=== PATIENT | female | born 1985 | race Hispanic/Latino ===

== ENCOUNTER 2018-09-06 18:58 | Inpatient (IN) | payer OTHER ==
[~2018-09-06] VITALS: Ht 154.9 cm; Wt 70.4 kg
[2018-09-06] MEDS ORDERED: PRENTAB9 PO (19:27)
[2018-09-06 19:37] LABS: APPEARANCE, URINE CLOUDY (CLEAR); BACTERIA, URINE AUTO NEGATIVE (NEGATIVE); BILIRUBIN, URINE AUTO NEGATIVE (NEGATIVE); BLOOD, URINE BLOOD 3+ (NEGATIVE); COLOR, URINE YELLOW (YELLOW); GLUCOSE, URINE (UA) AUTO NEGATIVE (NEGATIVE); KETONE, URINE AUTO 2+ mg/dL (NEGATIVE); LEUKOCYTE ESTERASE, URINE AUTO 2+ (NEGATIVE); MUCUS, URINE SMALL (NEGATIVE); NITRITE, URINE AUTO NEGATIVE (NEGATIVE); PROTEIN, URINE AUTO NEGATIVE (NEGATIVE); RBC, URINE AUTO 2 /HPF (0-3); SPECIFIC GRAVITY URINE AUTO 1.018 (1.002-1.035); SQUAMOUS EPITHELIAL CELL UR AU 7 /HPF (0-6); UROBILINOGEN, URINE AUTO 0.2 mg/dL (0.0-2.0); WBC, URINE AUTO 61 /HPF (0-3)
[2018-09-06 20:18] VITALS: BP 113/68
[2018-09-06] MEDS ORDERED: LACTATED RINGER'S 1000 ML IV ONE (20:45)
[2018-09-06] MEDS ORDERED: AMPICILLIN SOD/SULBACTAM SOD 3 GM in D5W MINI-BAG PLUS 100 ML IV ONE (21:00)
[2018-09-06] MEDS ORDERED: OXYTOCIN 30 UNITS IN 0.9% NaCl 500ML IV BAG (J2590) As Ordered ONE (22:19)
[2018-09-06] MEDS ORDERED: OXYTOCIN DRIP 30 UNITS in APPROPRIATE DILUENT 1 EA IV SCH (23:09)
[2018-09-06] MEDS ORDERED: RHOGAM 300 MCG (1500 IU) INJ (J2790) IM SCH (23:15)
[2018-09-06] MEDS ORDERED: MOM 30ML SUSPENSION UDC PO PRN (23:15)
[2018-09-06] MEDS ORDERED: IBUPROFEN 800 MG TAB PO PRN (23:15)
[2018-09-06] MEDS ORDERED: ANUSOL HC CREAM 30GM TOP PRN (23:15)
[2018-09-06] MEDS ORDERED: OXYTOCIN INJ 10 UNITS/ML VIAL (J2590) IV ONE (23:15)
[2018-09-06] MEDS ORDERED: METHYLERGONOVINE MALEATE 0.2 MG TAB PO PRN (23:15)
[2018-09-06] MEDS ORDERED: MEASLES,MUMPS,RUBELLA VACCINE INJ (MMR-II) (90707) SC SCH (23:15)
[2018-09-06] MEDS ORDERED: ACETAMINOPHEN TAB 650MG DOSE (2X325MG) PO PRN (23:15)
[2018-09-06] MEDS ORDERED: DIBUCAINE 1% OINTMENT 30GM TOP PRN (23:15)
[2018-09-06] MEDS ORDERED: ACETAMINOPHEN 500 MG TAB PO PRN (23:15)
[2018-09-06] MEDS ORDERED: DOCUSATE SODIUM 100 MG CAP PO PRN (23:15)
[2018-09-07 00:06] LABS: CORD GAS ABE V -8.2; CORD GAS HCO3 V 18.1 MEQ/L; CORD GAS O2 SAT V 69.6 %; CORD GAS PCO2 V 40.1 mmHg; CORD GAS PH V 7.272 UNITS; CORD GAS PO2 V 33.7 mmHg; CORD GAS SBC V 17.3 MEQ/L; CORD GAS TCO2 V 19.3 MEQ/L
[2018-09-07 00:17] LABS: CORD GAS ABE A -7.9; CORD GAS HCO3 A 21.2 MEQ/L; CORD GAS O2 SAT A 39.9 %; CORD GAS PCO2 A 57.9 mmHg; CORD GAS PH A 7.182 UNITS; CORD GAS PO2 A 23.2 mmHg; CORD GAS SBC A 16.9 MEQ/L
[2018-09-07 00:22] LABS: HEMATOCRIT 33.6 % (36.0-47.0); MEAN CORPUSCULAR HEMOGLOBIN 26.4 pg (27.0-33.0); MEAN CORPUSCULAR HGB CONC 32.7 g/dl (32.0-36.5); MEAN CORPUSCULAR VOLUME 80.8 fl (80.0-96.0); PLATELET COUNT, AUTOMATED 242 10^3/uL (150-450); RED BLOOD COUNT 4.16 10^6/uL (4.00-5.40); WHITE BLOOD COUNT 14.3 10^3/uL (4.0-10.0)
[2018-09-07 01:31] VITALS: BP 122/74
[2018-09-07] MEDS: IBUPROFEN 600 MG TAB PO PRN (01:39)
[2018-09-07 02:00] VITALS: BP 111/63
[2018-09-07 06:00] VITALS: BP 109/64
[2018-09-07 07:14] LABS: HEMATOCRIT 29.5 % (36.0-47.0); HEMOGLOBIN 9.6 g/dl (12.0-15.5); MEAN CORPUSCULAR HEMOGLOBIN 25.4 pg (27.0-33.0); MEAN CORPUSCULAR HGB CONC 32.5 g/dl (32.0-36.5); PLATELET COUNT, AUTOMATED 247 10^3/uL (150-450); RED BLOOD COUNT 3.78 10^6/uL (4.00-5.40)
--- NOTE | 2018-09-07 08:19 | HPE ---
DATE OF ADMISSION: 09/06/2018 33-year-old 3, para 2, last menstrual period (LMP) 12/19/2017, estimated date of confinement (EDC) 09/25/2018, 37 and 2 weeks of gestation, with history of contractions, dehydration, possible urinary tract infection (UTI). Risk factors; dehydration, possible UTI, transfer 27 weeks gestation. PAST HISTORY: In 2010, at 38 weeks, spontaneous vaginal delivery. 2014, at 38 weeks spontaneous vaginal delivery. LABS: Are O positive, HIV negative, hepatitis negative, RPR negative, rubella nonimmune. Varicella immune. Pap normal. Urine negative. Gonorrhea and chlamydia negative. 1-hour glucose was 117. On examination, appear distressed. Symphysis fundus height is 38, vertex presenting -2 station, posterior, 1-2 cm, 50% effaced. No vaginal loss or bleeding. Urine is 1.018, pH is 5, 2+ ketones, 2+ esterase, 3+ blood. Blood pressure 113/68, respirations 18, pulse 121, temperature 97.6. Rest of examination unremarkable. Normocephalic, atraumatic. Neck: Full range of motion. Pupils equal and reactive to light. Distal pulses symmetric. No evidence of deep venous thrombosis (DVT), pulmonary embolus (PE), or superficial phlebitis. Chest is clear bilaterally to bases, no wheezes or rhonchi. No costovertebral angle (CVA) tenderness. Abdomen: Soft. Symphysis fundus height is appropriate. Category strip. Four quadrant bowel sounds are noted. No rashes, lesions, or pruritus. No arthralgia or myalgia. No complaint joint pain. No complaint of cough, wheeze, shortness breath, or dyspnea on exertion. No nausea, vomiting, diarrhea, or constipation. No diabetic issues. No gynecological (MDS COORDINATOR) or medical issues. Presently, has good support, to a soldier. Both and two children are here with her. Possibility of being in early labor will be entertained. Re-evaluation in 2-hours' time. Intravenous (IV) antibiotics in order to cover the possible UTI, and oral antibiotics to take home if the patient is discharged. Will re-evaluate her in 2 hours.
--- NOTE | 2018-09-07 08:48 | IPN ---
DATE: 09/07/2018 day #1. This lady is a 33-year-old 3, now para 3, came in spontaneous precipitous labor, delivered a female, 6 pounds 8 ounces, 2940 grams, scores of 9 and 9 at one and five minutes respectively. Arterial pH was 7.18, base excess -7.9, venous pH 7.27, base excess -8.2. Admitting hemoglobin was 11.0, hematocrit 33.6 and platelets are 242. On day #1, she is breast-feeding, doing well, voiding, passing gas. The rest of the examination is unremarkable. Normocephalic, atraumatic. Neck: Full range of motion. Pupils equal and reactive to light. Distal pulses symmetric. No evidence of deep vein thrombosis (DVT), pulmonary embolism (PE), or superficial phlebitis. Chest is clear bilaterally bases. No wheezes or rhonchi. No costovertebral angle (CVA) tenderness. Abdomen: Soft, four quadrant bowel sounds are noted. Perineum is intact. Blood pressure 109/64, respirations 17, pulse 80, temperature is 98.1. The patient will be given medications at discharge. She is uncertain about control. Will discuss that at 6-week checkup. In summary, we have a 37 and 1 week gestation, delivered a live female . No issues.
[2018-09-07] MEDS: PRENATAL VITAMINS CHEWABLE TABLET PO SCH (09:00)
[2018-09-07 18:00] VITALS: BP 114/71
--- NOTE | 2018-09-07 19:07 | DN ---
DATE: 09/06/2018 This lady is a 3, para 2, was admitted because of contractions, dehydration and possible urinary tract infection (UTI). On initial examination, she was found to be 1 cm posterior, -250 percent effaced. She was significantly dehydrated, with a urine of 10/18 pH of 05, 350 blood, 250 of leukocyte esterase, 2+ ketones and nitrates. She then had a spontaneous rupture of membranes precipitously, became fully dilated and pushed out precipitously in the persistent occiput posterior (POP) position a live female infant, 2940 grams, 6 pounds 8 ounces, scores of 9 and 9 at one and five minutes respectively. Cord around the neck once. Placenta was spontaneously delivered. Three-vessel cord, membranes and tissues intact. Arterial and venous pH were performed. Perineum appeared to be intact. Sphincter was intact. The anterior, posterior and lateral rea were intact. Uterus contracted well down on Pitocin. The patient and baby tolerating the procedure well. We did swab the placental site because of increased heat on the initial pelvic examination.. Patient was afebrile.
[2018-09-08] MEDS: IBUPROFEN 600 MG TAB PO PRN (01:46)
[2018-09-08 05:55] VITALS: BP 111/72
--- NOTE | 2018-09-08 07:37 | DS.PDOC ---
Discharge Summary General Date of Admission Sep 06, 2018 at 22:15 Date of Discharge 08sep2018 Discharge Summary ADMITTING DIAGNOSES: Active labor DISCHARGE DIAGNOSES: Same, HOSPITAL COURSE: Admitted and delivery uncomplicated, . course uncomplicated. DISCHARGE MEDICATIONS: Motrin, Lanolin, Docusate, Dibucaine ointment DISCHARGE INSTRUCTIONS: Nothing in the vagina for 6 weeks. F/U in OBGYN clinic in 6-8 weeks. Sessions Vital Signs/I&Os Vital Signs Date Time Temp Pulse Resp B/P (MAP) Pulse Ox O2 Delivery O2 Flow Rate FiO2 09/08/18 05:55 98.0 75 18 111/72 (85) 09/07/18 18:00 96 I&O- Last 24 Hours up to 6 AM 09/08/18 06:00 Output Total 60 ml Balance -60 ml Microbiology Microbiology 09/06/18 Urine Culture - Final, Complete 09/06/18 Bacterial Culture, Received Pending Discharge Medications Scheduled No.137/Iron/Folic Acd ( Vitamin Tablet) 1 Each Tablet, 1 TAB PO DAILY, (Reported) Allergies Coded Allergies: No Known Allergies (Unverified , 09/06/18) SESSIONS,RAFA Nagy MD Sep 08, 2018 07:37
--- NOTE | 2018-09-08 07:38 | IPNPDOC ---
Text Note Date of Service The patient was seen on 09/08/18. NOTE PPD2 States feeling well, pain controlled with prescribed meds. Baby bonding and feeding well. No heavy VB. Lochia slowing. Ambulatory. Tolerating PO without issues. Voiding spont. No CP/LP/SOB. VSSAF NAD A&O LE no C/C/E Ut at U-2, firm a/p: Doing well. Cont routine care. D/C today. Sessions VSNing, I+O VSNing I+O Vital Signs Date Time Temp Pulse Resp B/P (MAP) Pulse Ox O2 Delivery O2 Flow Rate FiO2 09/08/18 05:55 98.0 75 18 111/72 (85) 09/07/18 18:00 96 I&O- Last 24 Hours up to 6 AM 09/08/18 05:59 Output Total 60 ml Balance -60 ml SESSIONS,RAFA Nagy MD Sep 08, 2018 07:38
[2018-09-08] MEDS ORDERED: IBUP80TA PO (07:44)
[2018-09-08] MEDS ORDERED: COLA100C5 PO (07:44)
[2018-09-08] MEDS ORDERED: ACET1TAB55 PO (07:44)
[2018-09-08] MEDS: PRENATAL VITAMINS CHEWABLE TABLET PO SCH (09:00)
== END 2018-09-08 13:30 | disposition home or self-care (01) | DRG 807 ==
LOC: M LDO 18:58 → M LDI 22:15 → M OBS 09-07 01:28
PROVIDERS: ADMIT Obstetrics & Gynecology; ATTEND Obstetrics & Gynecology
PROC: 10E0XZZ Delivery of Products of Conception, External Approach (ICD-10-PCS; principal; 2018-09-06)
DX: O69.82X0 Labor and delivery complicated by other cord entanglement, without compression, not applicable or unspecified (principal); Z37.0 Single live birth

== ENCOUNTER 2021-05-12 05:06 | Inpatient (IN) | payer OTHER ==
[2021-05-12] VITALS (10 sets, daily range): BP systolic 117–163; BP diastolic 71–98
[~2021-05-12] VITALS: Ht 154.9 cm; Wt 75.5 kg
[~2021-05-12 05:06] MED LIST: ACET1TAB55 PO; COLA100C5 PO; IBUP80TA PO; PRENTAB9 PO
[2021-05-12] MEDS ORDERED: LACTATED RINGER'S 1000 ML IV STA (05:44)
[2021-05-12] MEDS ORDERED: PENICILLIN G POTASSIUM IV 5 MU in D5W MINI-BAG PLUS 100 ML IV STA (05:44)
[2021-05-12] MEDS ORDERED: LR 1,000 ML IV SCH (05:45)
[2021-05-12 06:21] LABS: HEMATOCRIT 32.3 % (36.0-47.0); HEMOGLOBIN 10.4 g/dl (12.0-15.5); MEAN CORPUSCULAR HEMOGLOBIN 25.7 pg (27.0-33.0); MEAN CORPUSCULAR HGB CONC 32.2 g/dl (32.0-36.5); MEAN CORPUSCULAR VOLUME 79.8 fl (80.0-96.0); PLATELET COUNT, AUTOMATED 288 10^3/uL (150-450); RED BLOOD COUNT 4.05 10^6/uL (4.00-5.40); WHITE BLOOD COUNT 9.2 10^3/uL (4.0-10.0)
[2021-05-12] MEDS ORDERED: DIBUCAINE 1% OINTMENT 30GM TOP PRN (06:45)
[2021-05-12] MEDS ORDERED: ACETAMINOPHEN 500 MG TAB PO PRN (06:45)
[2021-05-12] MEDS ORDERED: OXYTOCIN DRIP 30 UNITS in IV 1 EA IV SCH (06:45)
[2021-05-12] MEDS ORDERED: DOCUSATE SODIUM 100MG CAPSULE PO PRN (06:45)
[2021-05-12] MEDS ORDERED: PROMETHAZINE 25 MG TAB PO PRN (06:45)
[2021-05-12] MEDS ORDERED: ACETAMINOPHEN TAB 650MG DOSE (2X325MG) PO PRN (06:45)
[2021-05-12] MEDS ORDERED: IBUPROFEN 600MG TAB PO PRN (06:45)
[2021-05-12] MEDS ORDERED: MEASLES,MUMPS,RUBELLA VACCINE INJ (MMR-II) (90707) SC SCH (06:45)
[2021-05-12] MEDS ORDERED: RHOGAM 300 MCG (1500 IU) INJ (J2790) IM SCH (06:45)
[2021-05-12] MEDS ORDERED: OXYTOCIN 30 UNITS IN 0.9% NaCl 500ML IV BAG (J2590) As Ordered ONE (06:48)
[2021-05-12] MEDS ORDERED: **PENDING PCN ENTRY XX SCH (09:00)
[2021-05-12] MEDS: PRENATAL VITAMINS CHEWABLE TABLET PO SCH (09:25)
[2021-05-12] MEDS: IBUPROFEN 800 MG TAB PO PRN ×2 (09:25→17:45)
[2021-05-12] MEDS ORDERED: PENICILLIN G POTASSIUM IV 2.5 MU in IV 1 EA IV SCH (09:45)
[2021-05-13 06:00] VITALS: BP 113/69
[2021-05-13] MEDS: PRENATAL VITAMINS CHEWABLE TABLET PO SCH (08:12)
== END 2021-05-13 13:15 | disposition home or self-care (01) | DRG 807 ==
LOC: M LDO 05:06 → M LDI 05:48 → M OBS 09:34
PROVIDERS: ADMIT Obstetrics & Gynecology; ATTEND Obstetrics & Gynecology
PROC: 10E0XZZ Delivery of Products of Conception, External Approach (ICD-10-PCS; principal; 2021-05-12)
DX: O62.3 Precipitate labor (principal); Z37.0 Single live birth; Z3A.37 37 weeks gestation of pregnancy; O69.81X0 Labor and delivery complicated by cord around neck, without compression, not applicable or unspecified